=== PATIENT | female | born 1925 | race Caucasian/White ===

== ENCOUNTER 2016-03-22 03:40 | Emergency (ER) | payer MEDICARE ==
[2016-03-22] MEDS ORDERED: IOPAMIDOL 300 (61%) 150 ML VIAL IV ONE (03:41)
[2016-03-22] MEDS ORDERED: KETOROLAC TROMETHAMINE 15 MG/ML VIAL ONE (04:01)
[2016-03-22] MEDS ORDERED: ONDANSETRON 4 MG ODT TAB ONE (05:14)
[2016-03-22 05:45] LABS: ABSOLUTE NEUTROPHIL COUNT 6.5 K/mm3 (1.8-7.7); BASO % 0.3 % (0.2-1.0); EOS # 0.1 (0.0-0.5); HEMATOCRIT 37.6 % (37.0-47.0); HEMOGLOBIN 12.3 gm/l (12.0-16.0); IMM NEUT% 0.5 % (0-1); LYMPH # 1.6 (1.0-4.8); LYMPH % 17.9 % (15-45); MEAN CELL VOLUME 96.2 fl (81.0-99.0); MEAN CORPUSCULAR HEMOGLOBIN 31.5 pg (27.0-31.0); MEAN CORPUSCULAR HGB CONC 32.7 g/dl (33.0-37.0); MEAN PLATELET VOLUME 9.4 fl (7.4-10.4); MONO # 0.5 (0.0-0.8); MONO % 5.4 % (4-12); NEUT % 74.9 % (43-75); PLATELET COUNT 221 K/mm3 (130-400); RED CELL DISTRIBUTION WIDTH 12.6 % (11.5-14.5)
[2016-03-22 06:12] LABS: CALCIUM 9.3 mg/dL (8.6-10.3)
[2016-03-22] MEDS ORDERED: ACETAMINOPHEN 325 MG TABLET ONE (07:42)
--- NOTE | 2016-03-22 09:08 | CT ---
ABD/PELVIS W/ CON COMPARISON: MRI pelvis, 03/21/2010 HISTORY: 89-year-old female with left lower quadrant abdominal and back pain. eGFR 47 mL/min. Technique: No oral contrast. Intravenous injection 125 mL Isovue 300. Using a Tosop5 Aquilion [address] scanner, images were obtained from the diaphragm to the floor the pelvis. An automated dose reduction technique was used to minimize patient radiation dose. Dose information: CTDIvol (mGy): 13.70 DLP(mGycm): 677.50 FINDINGS: Lung bases: 4.1 mm or smaller noncalcified nodules, two in the right middle lobe, one in the right lower lobe, and 4 in the left lower lobe. Inferior mediastinum and heart: Normal. Liver: Normal. Gallbladder: Cholecystectomy. Bile ducts: Normal. Pancreas: Severe atrophy. Spleen: Normal. Adrenal glands: Normal. Kidneys: Normal. Ureters: Normal Urinary bladder: Normal. Uterus and adnexa: Hysterectomy and bilateral oophorectomies. No mass. No free fluid. Blood vessels: No aneurysm or occlusion. 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 Lymph nodes: Normal Stomach: Normal Duodenum: Normal Small intestine: Normal Appendix: Not visible. Possibly removed. Colon: Diverticulosis of the descending and the sigmoid colon. No diverticulitis. No colitis or obstruction. Abdominal wall and supporting musculature: Normal Bones: No acute finding. Decreased mineralization. Degenerative changes in the spine. IMPRESSION: 1. Diverticulosis of the descending and sigmoid colon. No diverticulitis. 2. 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 Preliminary report by [facility] radiologist Silvia Pena MD 03/22/2016 at 07:17
== END 2016-03-22 07:58 | disposition home or self-care (01) ==
LOC: ED 03:40
DX: M54.5 Low back pain (principal); M25.552 Pain in left hip; I10 Essential (primary) hypertension; E03.9 Hypothyroidism, unspecified
CPT/HCPCS: 85025; 80048; 74177; 99284 ×2; 96372; 20552 ×2; J1885; A9270 ×2; Q9967